=== PATIENT | female | born 1990 | race Caucasian/White ===

== ENCOUNTER 2019-01-18 15:55 | Emergency (ER) | payer OTHER ==
[2019-01-18] MEDS ORDERED: Nicotine Inhaler* 10 MG AMP INH PRN (16:19)
--- NOTE | 2019-01-18 16:19 | ED ---
Psychiatric Complaint - HPI Summary HPI Summary: Patient is a 28 y/o F presenting to ED via EMS with complaints of depression, anxiety, and SI for the past two weeks. She spoke to her counselor today and was advised to come to ED for evaluation, patient is here on a voluntary basis. She reports that she has been having decreased sleep, appetite as well. Patient notes previous admission [place] [facility] in [place] for three days. PMHx of suicide attempt, per nurse practitioner home assessments, "Thought about buying scalpal online to harm herself but was worried her mom would find it in the mail". Patient is on venlafaxine 300 mg, gabapentin 300 mg for anxiety, omeprazole, trazodone. PMHx of ulcers. On triage, pain is denied, nothing is noted to aggravate/alleviate Sx. Home medications and allergies are reviewed. - History Of Current Complaint Chief Complaint: EDMentalHealth Time Seen by Provider: 01/18/19 16:14 Hx Obtained From: Patient Onset/Duration: Lasting Weeks - two weeks, Still Present Timing: Weeks - two Severity Currently: None - pain denied Character: Depressed, Anxious Aggravating Factor(s): Nothing Alleviating Factor(s): Nothing Associated Signs And Symptoms: Positive: Sleep Disturbance, Appetite Change - decreased Has Suicidal: Reports: Thoughts, With A Plan, Has Prior Attempt(s) - Allergies/Home Medications Allergies/Adverse Reactions: Allergies Allergy/AdvReac Type Severity Reaction Status Date / Time No Known Allergies Allergy Verified 01/18/19 16:31 Home Medications: Home Medications Gabapentin CAP(*) [Neurontin 100 mg CAP(*)] 100 mg PO TID 01/18/19 [History Confirmed 01/18/19] Mirtazapine TAB* [Remeron TAB*] 30 mg PO BEDTIME 01/18/19 [History Confirmed ] Omeprazole (Nf) [Prilosec (NF)] 40 mg PO DAILY 01/18/19 [History Confirmed 01/18] Venlafaxine ER (NF) [Effexor ER (NF)] 300 mg PO DAILY 01/18/19 [History Confirmed 01/18/19] traZODone TAB* [Desyrel TAB*] 50 mg PO BEDTIME PRN 01/18/19 [History Confirmed 01/18/19] PMH/Surg Hx/FS Hx/Imm Hx Sensory History: Reports: Hx Contacts or Glasses Denies: Hx Hearing Aid Opthamlomology History: Reports: Hx Contacts or Glasses Psychiatric History: Reports: Hx Anxiety, Hx Depression Denies: Hx Eating Disorder, Hx of Violent Episodes Against Others Infectious Disease History: Unable to Obtain/Confirm Infectious Disease History: Denies: Traveled Outside the [place] in Last 30 Days - Family History Known Family History: Positive: Other - FMHx of psychiatric problems - Social History Alcohol Use: None Hx Substance Use: No Substance Use Type: Reports: None Hx Tobacco Use: No Smoking Status (MU): Never Smoked Tobacco Review of Systems Negative: Fever - 99.1 F on vitals Psychological: Other - SI Positive: Anxious, Depressed All Other Systems Reviewed And Are Negative: Yes Physical Exam - Summary Physical Exam Summary: Appearance: The patient is well-nourished in no acute distress and in no acute pain. Skin: The skin is warm and dry and skin color reflects adequate perfusion. HEENT: The head is normocephalic and atraumatic. The pupils are equal and reactive. The conjunctivae are clear and without drainage. Nares are patent and without drainage. Mouth reveals moist mucous membranes and the throat is without erythema and exudate. The external ears are intact. The ear canals are patent and without drainage. The tympanic membranes are intact. Neck: The neck is supple with full range of motion and non-tender. There are no carotid bruits. There is no neck vein distension. Respiratory: Chest is non-tender. Lungs are clear to auscultation and breath sounds are symmetrical and equal. Cardiovascular: Heart is regular rate and rhythm. There is no murmur or rub auscultated. There is no peripheral edema and pulses are symmetrical and equal. Abdomen: The abdomen is soft and non-tender. There are normal bowel sounds heard in all four quadrants and there is no organomegaly palpated. Musculoskeletal: There is no back tenderness noted. Extremities are non-tender with full range of motion. There is good capillary refill. There is no peripheral edema or calf tenderness elicited. Neurological: Patient is alert and oriented to person, place and time. The patient has symmetrical motor strength in all four extremities. Cranial nerves are grossly intact. Deep tendon reflexes are symmetrical and equal in all four extremities. Triage Information Reviewed: Yes Vital Signs On Initial Exam: Initial Vitals Temp Pulse Resp BP Pulse Ox 99.1 F 138 18 140/82 99 01/18/19 15:59 01/18/19 15:59 01/18/19 15:59 01/18/19 15:59 01/18/19 15:59 Vital Signs Reviewed: Yes Diagnostics - Vital Signs Vital Signs Temp Pulse Resp BP Pulse Ox 01/18/19 15:59 99.1 F 138 18 140/82 99 - Laboratory Result Diagrams: 01/18/19 16:35 01/18/19 16:35 Lab Statement: Any lab studies that have been ordered have been reviewed, and results considered in the medical decision making process. - EKG 1636 Cardiac Rate: Tachycardia - rate of 127 BPM EKG Rhythm: Sinus Tachycardia ST Segment: Normal Ectopy: None Summary of EKG Findings: EKG showed sinus tachycardia with rate of 127 BPM, no ectopy, normal ST, no STEMI. Re-Evaluation - Re-Evaluation First Eval Re-Evaluation Time: 18:03 Comment: Patient is medically cleared for MHE. Course/Dx - Course Course Of Treatment: Ms. Guidry presented for voluntary mental health eval. She has history of anxiety and depression and they have been worse in the past few weeks. She's not sleeping or eating well. She denies suicidal or homicidal ideation. She was medically cleared here and his currently in the [place] overweight a mental health eval. - Differential Dx/Clinical Impression Provider Diagnosis: Depression, Anxiety Discharge - Sign-Out/Discharge Documenting (check all that apply): Sign-Out Patient Signing out patient TO: Saskia Clifford - Discharge Plan Referrals: Rush Robbins MD [Primary Care Provider] - - Attestation Statements Document Initiated by Carmen: Yes Documenting Scribe: RONNY GODFREY Provider For Whom Carmen is Documenting (Include Credential): SASKIA KENT MD Scribe Attestation: I, RONNY GODFREY, scribed for SASKIA KENT MD on 01/18/19 at 1853. Scribe Documentation Reviewed: Yes Provider Attestation: The documentation as recorded by the RONNY francis accurately reflects the service I personally performed and the decisions made by me, SASKIA KENT MD Status of Scribe Document: Viewed
[2019-01-18 16:37] LABS: Urine Appearance Cloudy; Urine Bacteria Absent (Absent); Urine Bilirubin Negative (Negative); Urine Blood 3+ (Negative); Urine Color Amber; Urine Glucose Negative (Negative); Urine Ketones Trace (Negative); Urine Nitrite Negative (Negative); Urine Protein 1+(30 mg/dL) (Negative); Urine Red Blood Cell 3+(>10/hpf) (Absent); Urine Specific Gravity 1.025 (1.010-1.030); Urine Squamous Epithelial Cell Present (Absent); Urine Urobilinogen Negative (Negative); Urine White Blood Cell 3+(>20/hpf) (Absent)
[2019-01-18 16:40] LABS: ABS Basophils 0 10^3/ul (0-0.2); ABS Eosinophils 0 10^3/ul (0-0.6); ABS Lymphocytes 2.2 10^3/ul (1.0-4.8); ABS Monocytes 0.7 10^3/ul (0-0.8); ABS Neutrophils 6.9 10^3/ul (1.5-7.7); ABS Nucleated RBC 0 10^3/ul; Eosinophil % 0 %; Hematocrit 39 % (35-47); Hemoglobin 12.7 g/dl (12.0-16.0); Mean Corpuscular HGB Conc 33 g/dl (31-36); Mean Corpuscular Hemoglobin 27 pg (27-31); Mean Corpuscular Volume 83 fL (80-97); Mean Platelet Volume 7.3 fL (7.4-10.4); Nucleated Red Blood Cells % 0; Platelet Count 454 10^3/ul (150-450); Red Blood Count 4.73 10^6/ul (4.00-5.40); Red Cell Distribution Width 14 % (10.5-15); White Blood Count 9.8 10^3/ul (3.5-10.8)
--- OUTSIDE RECORDS SUMMARY | 2019-01-18 16:44 | XMS REPORT ---
:1990 Author Organization [facility] Address [address] [place] [address] Care Team Providers Name Role Phone Heladio Faustin Unavailable Unavailable PROBLEMS Type Condition ICD9-CM Code [id number] Code Onset Condition SNOMED Code Dates Status Problem Depression with F41.8 Active 257509626 anxiety Problem BMI Z68.35 Active 599765785 35.0-35.9,adult Problem Chronic K29.50 Active 1289139 gastritis without bleeding, unspecified gastritis type Problem Hiatal hernia K44.9 Active 22289625 Problem Obesity (BMI E66.9 Active 361896325 30-39.9) Problem Vitamin D E55.9 Active 45427389 deficiency ALLERGIES Substance Reaction Event Type Date Status Neutrogena products allergy Non Drug Allergy Dec, Active ENCOUNTERS Encounter Location Date Diagnosis [address], Dec, [place] [address] joints of right foot M25.571 and Tachycardia R00.0 [facility] [address] Dec, [place] [address], [place] [address], Oct, [place], joint, [place] [address] [address] Jul, Tachycardia R00.0 [place] [address], Jun, [place] [address] M25.562 ; Depression with anxiety F41.8 and Chest tightness R07.[address] [place] [address] [place], [place] [address] [place], May, [place] [address] Z12.[address] [place] [address] [place], March, [place] [address] M25.562 ; Depression with anxiety F41.8 and Tachycardia R00.[address] [place] [address] [place], [place] [address] [place], [place] [address] [place], [place] [address] Dec, [place] [address] [place], Dec, Painful defecation R19.8 ; [place] [address] Depression with anxiety F41.8 ; Left upper quadrant pain R10.12 and Right upper quadrant pain R10.[address] [place], [place] [address] [place], Nov[place] [address] infectious origin R19.7 ; Dehydration E86.0 ; Blood in stool K92.1 and Major depression single episode, in partial remission F32.[address] [place], Aug, [place] [address] F41.8 ; Missed menses N92.6 ; Vitamin D deficiency E55.9 and Other iron deficiency anemia D50.[address] [place] [address] [place], Jul, [place] [address] F41.8 ; Missed menses N92.6 ; Vitamin D deficiency E55.9 and Cervical cancer screening Z12.[address] [place], Jun, [place] [address] F41.8 ; Vitamin D deficiency E55.9 and Obesity (BMI 30-39.9) E66.[address] [place], May, [place]55[place] [address] [place] [address] [place], May, [place] [address] episode, in partial remission F32.4 ; Obesity (BMI 30-39.9) E66.9 and Encounter for immunization Z23 [facility] [address] [place] [address] [place], May, [place] [address] episode, in partial remission F32.4 [place] [facility] [address] [place] [address] [place], [place] [address] [place], [place] [address] episode, in partial remission F32.[address] [place], May, [place] [address] partial remission F32.[address] [place], May, [place] [address] episode, in partial remission F32.[address] [place], May, [place] [address] episode of major depressive disorder, without psychotic features F32.[address] [place], [place] [address] [place], [place] [address] [place], Apr, [place] [address] episode of major depressive disorder, without psychotic features F32.2 ; Acute suppurative otitis media of both ears without spontaneous rupture of tympanic membranes, recurrence not specified H66.003 and Dysfunctional uterine bleeding N93.[address] [place], March, [place] [address] episode of major depressive disorder, without psychotic features F32.2 ; Dysfunctional uterine bleeding N93.8 and Low back pain M54.[address] [place], [place] [address] [facility] [address] Feb, [place] [address] [place], Feb, [place] [address] bleeding N93.8 and Severe single current episode of major depressive disorder, without psychotic features F32.[address] [place], [place] [address] [place], Feb, [place] [address] episode of major depressive disorder, without psychotic features F32.2 [place] [facility] [address] [facility] [place], 03 Feb, 2017 [place] [address] bleeding N93.8 and Severe single current episode of major depressive disorder, without psychotic features F32.[address] Dec, Amenorrhea 626.0 and [place]ITIVE [address] [address]72[address] Sep, CONTRACEPT SURVEILL NEC [place] V25.49 [address] Aug, Surveillance of previously [place] prescribed contraceptive [address] pill V25.[address] Jul, Surveillance of previously [place] prescribed contraceptive [address] pill V25.[address] Jun, PRESCRIP-ORAL CONTRACEPT [place] V25.01 ; Other general [address] counseling and advice for contraceptive management V25.09 and HIGH-RISK SEXUAL BEHAVR V69.2 IMMUNIZATIONS No Known Immunizations SOCIAL HISTORY Never Assessed REASON FOR REFERRAL FUNCTIONAL STATUS PLAN OF CARE Activity Details Follow Up 6 Months Reason:preventative visit VITAL SIGNS Temperature 99.0 degrees Fahrenheit 2019-01-06 Heart Rate 20 2019-01-06 Weight 210 2019-01-06 Height 5'3.8" in 2019-01-06 BMI 36.27 kg/m2 2019-01-06 Oximetry 98 % 2019-01-06 Blood pressure systolic 100 mm Hg 2019-01-06 Blood pressure diastolic 60 mm Hg 2019-01-06 MEDICATIONS Medication Instructions Dosage Frequency Start End Date Duration Status Date Gabapentin 100 Orally Three 1 capsule 8h Active MG times a day Mirtazapine 30 Oral Once a day 24h Active mg Trazodone HCl 50 Oral Once a day 24h Active mg Venlafaxine HCl Orally Once a 2 24h Active ER 150 MG day Omeprazole 40 mg Active PROCEDURES Procedure Date Ordered Result Body Site BODY MASS INDEX DOCD Jan 06, 2019 SMOKING + 2ND HAND ASSESSED Jan 06, 2019 Oxygen saturation results documented and reviewed Jan 06, 2019 BLOOD PRESSURE, MEASURED Jan 06, 2019 RESULTS No Results REASON FOR VISIT ankle pain follow up, Patient is here for a f/u on right ankle stated still on pain. Insurance Providers [facility] Member Patient Patient Patient Patient Patient Subscriber Subscriber Subscriber Group Insurance Plan Plan Plan Plan ID Relationship Address Phone Name Date of ID Name Date of No Type Insurance Insurance Insurance Coverage to Subscriber Address Phone Name Dates Medicaid [phone] Medicaid self Kimberly [id number] Wrap [facility] [address] [facility] [address] E[place]io [phone] [place] self Kimberly [id number] Medicaid [place] 47 [place] [address] Medical FPBP [phone] FPBP self Kimberly [id number] [place] 56 Medicaid [place] [address] Slide FP A [phone] Slide FP A self Kimberly [id number] [address] [place] [address] [facility] [address] [place] [address] [phone] Eusebio self Kimberly [id number] Medicaid [id number] Medicaid [place] [address] [employer] MEDICAL (GENERAL) HISTORY Type Description Date Medical History skull fracture age 4 Medical History Other iron deficiency anemia Hospitalization History suicide attempt 05/2017
--- OUTSIDE RECORDS SUMMARY | 2019-01-18 16:44 | XMS REPORT ---
:1990 Author Organization [facility] Address [address] [place] [address] Care Team Providers Name Role Phone Heladio Faustin Unavailable Unavailable PROBLEMS Type Condition ICD9-CM Code [id number] Code Onset Condition SNOMED Code Dates Status Problem Depression with F41.8 Active 328205046 anxiety Problem BMI Z68.35 Active 828108495 35.0-35.9,adult Problem Chronic K29.50 Active 7359356 gastritis without bleeding, unspecified gastritis type Problem Hiatal hernia K44.9 Active 07388964 Problem Obesity (BMI E66.9 Active 380485675 30-39.9) Problem Vitamin D E55.9 Active 59454845 deficiency ALLERGIES No Information ENCOUNTERS Encounter Location Date Diagnosis [address], [place] [address] Dec, [place] [address], [place] [address], Oct, Pain, joint, [place] [address] [address] Jul, Tachycardia R00.0 [place] [address], Jun, [place] [address] M25.562 ; Depression with anxiety F41.8 and Chest tightness R07.[address], [place] [address] [place] [address] [place], [place], [place] [address] [place], March, [place] [address] M25.562 ; Depression with anxiety F41.8 and Tachycardia R00.[address] [place] [address] [place], [place] [address] [place], [place] [address] [place], [place] [address] Dec, [place] [address] [place], Dec, Painful defecation R19.8 ; [place] [address] Depression with anxiety F41.8 ; Left upper quadrant pain R10.12 and Right upper quadrant pain R10.[address] [place], [place] [address] [place], Nov[place] [address] infectious origin R19.7 ; Dehydration E86.0 ; Blood in stool K92.1 and Major depression single episode, in partial remission F32.[address] [place], Aug, [place] [address] F41.8 ; Missed menses N92.6 ; Vitamin D deficiency E55.9 and Other iron deficiency anemia D50.[address] [place], Jul, [place] [address] F41.8 ; Missed menses N92.6 ; Vitamin D deficiency E55.9 and Cervical cancer screening Z12.[address] [place], Jun, [place] [address] F41.8 ; Vitamin D deficiency E55.9 and Obesity (BMI 30-39.9) E66.[address] [place] [address] [place], May, [place]55[place]9 [place] [address] [place] [address] [place], [place], [place] [address] episode, in partial remission F32.4 ; Obesity (BMI 30-39.9) E66.9 and Encounter for immunization Z23 [facility] [address] [facility] [place], [place], [place] [address] episode, in partial remission F32.4 [facility] [address] [place] [address] [place], [place] [address] [facility] [address] [place] [address] [place], May, [place] [address] episode, in partial remission F32.[address] [place], [place] [address] episode, in partial remission F32.[address] [place], [place], [place] [address] partial remission F32.[address] [place], May, [place] [address] episode of major depressive disorder, without psychotic features F32.[address] [place], [place] [address] [place], [place] [address] [place], Apr, [place] [address] episode of major depressive disorder, without psychotic features F32.2 ; Acute suppurative otitis media of both ears without spontaneous rupture of tympanic membranes, recurrence not specified H66.003 and Dysfunctional uterine bleeding N93.[address] [place], March, [place] [address] episode of major depressive disorder, without psychotic features F32.2 ; Dysfunctional uterine bleeding N93.8 and Low back pain M54.[address] [place], [place] [address] [facility] [address] Feb, [place] [address] [place], Feb, [place] [address] bleeding N93.8 and Severe single current episode of major depressive disorder, without psychotic features F32.[address] [place], [place] [address] [place], Feb, [place] [address] episode of major depressive disorder, without psychotic features F32.[address] [place], Feb, [place] [address] bleeding N93.8 and Severe single current episode of major depressive disorder, without psychotic features F32.[address] Dec, Amenorrhea 626.0 and [place] [address] V72[address] Sep, CONTRACEPT SURVEILL NEC [place] V25.49 [address] Aug, Surveillance of previously [place] prescribed contraceptive [address] pill V25.[address] Jul, Surveillance of previously [place] prescribed contraceptive [address] pill V25.[address] Jun, PRESCRIP-ORAL CONTRACEPT [place] V25.01 ; Other general [address] counseling and advice for contraceptive management V25.09 and HIGH-RISK SEXUAL BEHAVR V69.2 IMMUNIZATIONS No Known Immunizations SOCIAL HISTORY Never Assessed REASON FOR REFERRAL FUNCTIONAL STATUS PLAN OF CARE VITAL SIGNS MEDICATIONS Unknown Medications PROCEDURES No Known procedures RESULTS No Results REASON FOR VISIT No show Insurance Providers [facility] Patient Patient Patient Patient Patient Subscriber Subscriber Subscriber Group Insurance Plan Plan Plan Plan ID Relationship Address Phone Name Date of ID Name Date of No Type Insurance Insurance Insurance Coverage to Subscriber Address Phone Name Dates Eusebio [phone] [place] self Ikmberly [id number] Medicaid [id number] Medicaid [place] [facility] [id number] [employer] FPBP [id number] FPBP self Kimberly [id number] [place] 56 Medicaid [facility] [address] Eusebio [phone] [place] self Kimberly [id number] Medicaid [place] 47 [place] [address] Medical Slide FP A [phone] Slide FP A self Kimberly [id number] [address] [facility] 100 [facility] [address] [id number] Medicaid self Kimberly [id number] Wrap [facility] [address] [place] [address] MEDICAL (GENERAL) HISTORY Type Description Date Medical History skull fracture age 4 Medical History Other iron deficiency anemia Hospitalization History suicide attempt 05/2017
[2019-01-18 16:54] LABS: Barbiturates Urine Screen None Detected (None Detect); Benzodiazepine Urine Screen None Detected (None Detect); Urine Cannabinoids Screen None Detected (None Detect)
[2019-01-18 16:59] LABS: ALT 18 U/L (7-52); AST 13 U/L (13-39); Albumin 4.6 g/dL (3.2-5.2); Albumin/Globulin Ratio 1.4 (1-3); Alkaline Phosphatase 81 U/L (34-104); Anion Gap 8 mmol/L (2-11); BUN/Creatinine Ratio 10.3 (8-20); Blood Urea Nitrogen 7 mg/dL (6-24); CO2 Carbon Dioxide 26 mmol/L (22-32); Calcium 9.4 mg/dL (8.6-10.3); Chloride 104 mmol/L (101-111); EGFR African American 125.6 (>60); EGFR Non-African American 103.8 (>60); Globulin 3.3 g/dL (2-4); Glucose 107 mg/dL (70-100); Potassium 3.8 mmol/L (3.5-5.0); Sodium 138 mmol/L (135-145); Total Protein 7.9 g/dL (6.4-8.9)
[2019-01-18] MEDS ORDERED: Mouth Piece, Nicotine* 1 EACH CARTRIDGE INH PRN (17:07)
[2019-01-18 17:14] LABS: HCG Pregnancy < 0.60 mIU/mL
[2019-01-18 17:20] LABS: Alcohol < 10 mg/dL (<10); Salicylate < 2.50 mg/dL (<30)
[2019-01-18 17:38] LABS: Acetaminophen 3 mcg/mL
[2019-01-18 17:43] LABS: TSH (Thyroid Stimulating Horm) 5.24 mcIU/mL (0.34-5.60)
--- NOTE | 2019-01-18 20:28 | ED ---
Progress - Progress Note Progress Note: The patient is a sign-out from Dr. Ciro Velez MD, to Dr. Ciro Clifford MD , at change of shift at 1900 pending mental health evaluation and disposition. Per mental health staff, the patient is diagnosed with depression by Dr. Lola Rizzo MD, psychiatry. She will be discharged home with follow up with her outpatient open counseling community. She agrees with this plan and understands the need for return to the ED if new or worsening symptoms occur. - Consult/PCP Time Called: 18:45 Re-Evaluation - Re-Evaluation First Eval Re-Evaluation Time: 18:03 Comment: Patient is medically cleared for MHE. Course/Dx - Course Course Of Treatment: Ms. Guidry presented for voluntary mental health eval. She has history of anxiety and depression and they have been worse in the past few weeks. She's not sleeping or eating well. She denies suicidal or homicidal ideation. She was medically cleared here and his currently in the [place] overweight a mental health eval. - Diagnoses Provider Diagnoses: Depression, Anxiety Discharge - Sign-Out/Discharge Documenting (check all that apply): Patient Departure - Patient will be discharged home., Receiving Sign-Out Receiving patient FROM: Ciro Velez - Patient is a signout from Dr. Velez to Dr. Clifford at shift change at 1900 pending MHE and disposition. Patient Received Moderate/Deep Sedation with Procedure: No - Discharge Plan Condition: Stable Disposition: HOME Patient Education Materials: Depression (ED), Help Prevent Suicide (ED) Referrals: [place] [Other] (Please follow up as soon as possible with your outpatient provider) Rush Robbins MD [Primary Care Provider] - Herve Rizzo MD [Medical Doctor] - 3 Days Additional Instructions: Follow up with your Outpatient Open Counseling Community as discussed. Return to the emergency department for any new or worsening symptoms. - Billing Disposition and Condition Condition: STABLE Disposition: Home - Attestation Statements Document Initiated by Scribe: Yes Documenting Scribe: Buffy Parkinson Provider For Whom Scribe is Documenting (Include Credential): Dr. Ciro Clifford MD Scribe Attestation: Buffy Valdes scribed for Dr. Ciro Clifford MD on 01/19/19 at 0459. Scribe Documentation Reviewed: Yes Provider Attestation: The documentation as recorded by the scribe, Buffy Parkinson accurately reflects the service I personally performed and the decisions made by me, Dr. Ciro Clifford MD Status of Carmen Document: Viewed
[2019-01-18 20:48] VITALS: BP 142/90
== END 2019-01-18 20:46 | disposition home or self-care (01) ==
LOC: ED 15:55
DX: F32.9 Major depressive disorder, single episode, unspecified (principal); F41.9 Anxiety disorder, unspecified; R45.851 Suicidal ideations; R00.0 Tachycardia, unspecified
CPT/HCPCS: 36415; 80053; 80307; 80320; 80329; 81003; 81015; 84443; 84702; 85025; 87086; 93005; 99284; G0480